=== PATIENT | male | born 1970 | race Caucasian/White ===

== ENCOUNTER 2016-03-30 07:02 | Emergency (ER) | payer SELFPAY ==
[~2016-03-30] VITALS: Ht 167.6 cm; Wt 81.1 kg
[~2016-03-30 07:02] MED LIST: HYDR-3580 PO; PROM25TA5 PO; TAMS0.4C67 PO
[2016-03-30 07:05] VITALS: BP 149/83; PULSE 74; RESP 16; TEMP 98.3; O2SAT 100
--- NOTE | 2016-03-30 07:24 | PD ---
HPI Chief Complaint: Skin Problem Time Seen by Provider: 07:22 Travel History International Travel<30 days: No Contact w/Intl Traveler<30days: No Traveled to known affect area: No History of Present Illness HPI Mr. Loo is a 45-year-old male presents emergency department for evaluation of swelling and pain to the right index finger. Patient states approximate 2 weeks ago he was working on a major appliance when his hand slipped and he impacted the dorsum of his hand and right index finger against the wall of the kitchen oven. Patient states he cut his finger down to the bone. He was healing well and he super glued together. States it is healing well until last night when the scab popped off and there was some green discharge and since then he's had some mild swelling of the dorsum of the right hand as well as the right index finger. No fevers. Patient states her pain radiates up his right arm into his right forearm. PFSH Past Medical History Kidney Stones: Yes Immunizations Current: Yes Myocardial Infarction: Yes Tetanus Vaccination: Unknown Influenza Vaccination: No Social History Alcohol Use: No Tobacco Use: Yes (1 PPD) Substance Use: No Allergies-Medications (Allergen,Severity, Reaction): Coded Allergies: Contrast Media (Verified Allergy, Severe, Redness, flushing, 03/30/16) Daypro (Verified Allergy, Severe, Swelling, hives, 03/30/16) Reported Meds & Prescriptions Reported Meds & Active Scripts Active [place] (Hydrocodone-Acetaminophen) 10-325 Mg Tab 1 Tab PO Q6H PRN Clindamycin (Clindamycin HCl) 150 Mg Cap 450 Mg PO Q6H 10 Days Review of Systems Except as stated in HPI: all other systems reviewed are Neg Physical Exam Narrative GENERAL: Well-nourished, well-developed patient. In no apparent distress SKIN: Warm and dry. HEAD: Normocephalic. EYES: No scleral icterus. No injection or drainage. NECK: Supple, trachea midline. No JVD or lymphadenopathy. CARDIOVASCULAR: Regular rate and rhythm without murmurs, gallops, or rubs. RESPIRATORY: Breath sounds equal bilaterally. No accessory muscle use. GASTROINTESTINAL: Abdomen soft, non-tender, nondistended. MUSCULOSKELETAL: No cyanosis, or edema. Right upper extremity: There is some swelling and tenderness particularly over the PIP joint on the right index finger. At this joint there is also a very small wound with some minimal thin discharge. There is also some swelling extending proximally into the dorsum of the hand particularly over the index and long finger metacarpals. Really I see no overlying erythema just soft tissue edema. Range of motion is all intact and compartments are soft. Pulses motor and sensory are intact distally in all 5 fingers of the right upper extremity. Wrist is normal. Elbow is normal. There is no swelling or erythema on the forearm. Left upper extremity: No swelling no deformity. BACK: Nontender without obvious deformity. No CVA tenderness. Data Data Last Documented VS Vital Signs Date Time Temp Pulse Resp B/P Pulse Ox O2 Delivery O2 Flow Rate FiO2 03/30/16 07:05 98.3 74 16 149/83 100 Orders Hand, Complete ([id number]) (03/30/16 ) Lidocaine 1% Inj (50 Ml) (Xylocaine 1% I (03/30/16 07:30) Clindamycin (Cleocin) (03/30/16 08:45) MDM Medical Decision Making Medical Screen Exam Complete: Yes Emergency Medical Condition: Yes Differential Diagnosis Cellulitis, abscess, tenosynovitis possible but unlikely, sepsis unlikely, Narrative Course Patient roomed in the emergency department, he appears well in no apparent distress. Ring block and attempted drainage as below. 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 Discussed with him return to ED criteria and recommended he return to see me on at this institution for a wound check. Procedures Procedure Narrative I&D: After consenting the patient, all risks benefits competitions and alternatives were discussed, digital block involving the dorsal ring block of the index finger with 1% plain lidocaine to total of 5 cc. This had adequate anesthesia. Manual expression of some discharge could be performed which was less than a cc. Using 11 blade a superficial skin neck was made which yielded blood without any additional drainage. Gentle pressure was held until bleeding was controlled and total blood loss was less than 5 cc. Bandage was applied. Diagnosis Primary Impression: Abscess Additional Instructions: If the swelling and redness continue to worsen the return to the emergency department for second evaluation. If he start running fevers return to emergency department. Keep the wound clean and dry. Please return on between 8am and noon for a wound check. Scripts Hydrocodone-Acetaminophen ([place])10-325 Mg Tab1 Tab PO Q6H PRN (PAIN) #12 TAB Ref 0 Prov:Ricky Cohen MD 03/30/16 Clindamycin 150 Mg [id number] Mg PO Q6H 10 Days Ref 0 Prov:Ricky Cohen MD 03/30/16 Disposition: 01 DISCHARGE HOME Condition: Stable Ricky Cohen MD Mar 30, 2016 07:24
[2016-03-30] MEDS ORDERED: LIDOCAINE HCL 1% 50 ML VIAL INFIL ONE (07:30)
--- NOTE | 2016-03-30 08:30 | RADHPO ---
EXAM DATE/TIME: 03/30/2016 07:58 [facility] COMPARISON: No previous studies available for comparison. INDICATIONS: Pain to right hand primarily posterior second digit proximal phalangeal joint. Patient states he lace rated it about 2 weeks ago & re injured it last night. Now has pain/swelling and pain radiating up ar m. MEDICAL HISTORY: Myocardial infarction. Renal calculi. SURGICAL HISTORY: Right 3rd digit. ENCOUNTER: Initial ACUITY: 1 day PAIN SCORE: 9/10 LOCATION: Right posterior hand/second digit FINDINGS: There is no acute fracture or dislocation of the right hand. Three is a subchondral cyst in the dist al pole of the scaphoid. There is soft tissue swelling involving the index finger. There is no radi opaque foreign body. CONCLUSION: 1. Soft tissue swelling involving the index finger without fracture, dislocation or radiopaque forei gn body. 2. Subchondral cyst involving the distal pole of the scaphoid. Ricky Meyer MD on March 30, 2016 at 8:14 Board Certified Radiologist. This report was verified electronically.
[2016-03-30] MEDS ORDERED: HYDR-3366 PO (08:43)
[2016-03-30] MEDS ORDERED: CLIN1CAP5 PO (08:43)
[2016-03-30] MEDS ORDERED: CLINDAMYCIN 150 MG CAP PO ONE (08:45)
== END 2016-03-30 08:50 | disposition home or self-care (01) ==
LOC: PHED 07:02
DX: L02.511 Cutaneous abscess of right hand (principal)
CPT/HCPCS: 26010; 73130